=== PATIENT | male | born 1990 | race Caucasian/White ===

== ENCOUNTER 2018-12-22 01:15 | Emergency (ER) | payer SELFPAY ==
--- NOTE | 2018-12-22 01:18 | EDM.PDOC ---
ED HPI GENERAL MEDICAL PROBLEM - General Stated Complaint: RT ARM HURTS Time Seen by Provider: 12/22/18 01:18 Source of Information: Reports: Patient - History of Present Illness INITIAL COMMENTS - FREE TEXT/NARRATIVE: HISTORY AND PHYSICAL: History of present illness: [Patient presents with right hand pain, he states that he fell on outstretched hand, he has no wrist pain or forearm pain essentially no injury above the wrist , limits neurovascularly intact he is tender over metacarpals on the dorsum of the hand no open lesion No fever nausea vomiting chills sweats denies other injury Review of systems: As per history of present illness and below otherwise all systems reviewed and negative. Past medical history: As per history of present illness and as reviewed below otherwise noncontributory. Surgical history: As per history of present illness and as reviewed below otherwise noncontributory. Social history: No reported history of drug or alcohol abuse. Family history: As per history of present illness and as reviewed below otherwise noncontributory. Physical exam: HEENT: Atraumatic, normocephalic, pupils reactive, negative for conjunctival pallor or scleral icterus, mucous membranes moist, throat clear, neck supple, nontender, trachea midline. Lungs: Clear to auscultation, breath sounds equal bilaterally, chest nontender. Heart: S1S2, regular, negative for clicks, rubs, or JVD. Abdomen: Soft, nondistended, nontender. Negative for masses or hepatosplenomegaly. Negative for costovertebral tenderness. Pelvis: Stable nontender. Genitourinary: Deferred. Rectal: Deferred. Extremities: Atraumatic, negative for cords or calf pain. Neurovascular unremarkable. Neuro: Awake, alert, oriented. Cranial nerves II through XII unremarkable. Cerebellum unremarkable. Motor and sensory unremarkable throughout. Exam nonfocal. Diagnostics: [Right hand 3 views ] Therapeutics: [Splint Rest ice ibuprofen All up with hand on Monday, I did state to speak with hand Dr. Raymond in mind at [facility] specialist who states he can follow-up on Monday ] Impression: Nondisplaced fracture right second metacarpal Third metacarpal displaced fracture Definitive disposition and diagnosis as appropriate pending reevaluation and review of above. left hand Pain Score (Numeric/FACES): 10 - Related Data Allergies Allergy/AdvReac Type Severity Reaction Status Date / Time No Known Allergies Allergy Verified 12/22/18 01:27 Home Meds: Home Meds . [No Known Home Meds] 12/22/18 [History] ED ROS GENERAL - Review of Systems Review Of Systems: See Below ED EXAM, GENERAL - Physical Exam Exam: See Below Course - Vital Signs Last Recorded V/S: Last Vital Signs Temp 97.5 F 12/22/18 01:15 Pulse 81 12/22/18 01:15 Resp 18 12/22/18 01:15 BP 130/90 12/22/18 01:15 Pulse Ox 98 12/22/18 01:15 - Orders/Labs/Meds Orders: Active Orders 24 hr Category Date Time Status Hand Comp Min 3V Rt [CR] Stat Exams 12/22/18 01:17 Taken Departure - Departure Time of Disposition: 02:06 Disposition: Home, Self-Care 01 Condition: Good Clinical Impression: Fracture of metacarpal bone, Fracture of hand - Discharge Information Additional Instructions: Splint Rest Ice 20 minute intervals 3 times daily as needed Ibuprofen 4-800 mg 3 times daily 7-10 days Follow-up with Dr. Katz, hand specialist, call phone number below to schedule appropriate follow-up [facility] - Plastic Surgery [address], [address] [place] [address] The following information is given to patients seen in the emergency department who are being discharged to home. This information is to outline your options for follow-up care. We provide all patients seen in our emergency department with a follow-up referral. The need for follow-up, as well as the timing and circumstances, are variable depending upon the specifics of your emergency department visit. If you don't have a primary care physician on staff, we will provide you with a referral. We always advise you to contact your personal physician following an emergency department visit to inform them of the circumstance of the visit and for follow-up with them and/or the need for any referrals to a consulting specialist. The emergency department will also refer you to a specialist when appropriate. This referral assures that you have the opportunity for follow-up care with a specialist. All of these measure are taken in an effort to provide you with optimal care, which includes your follow-up. Under all circumstances we always encourage you to contact your private physician who remains a resource for coordinating your care. When calling for follow-up care, please make the office aware that this follow-up is from your recent emergency room visit. If for any reason you are refused follow-up, please contact the [facility] emergency department at and asked to speak to the emergency department charge nurse. - My Orders Last 24 Hours: My Active Orders 12/22/18 01:17 Hand Comp Min 3V Rt [CR] Stat - Assessment/Plan Last 24 Hours: My Active Orders 12/22/18 01:17 Hand Comp Min 3V Rt [CR] Stat
--- NOTE | 2018-12-24 11:42 | CR ---
EXAM DATE: 12/22/18 PATIENT'S AGE: 28 Patient: DANTE MCRAE Facility: [facility] Site . Site : 1990 Study: XRay-Extremity Right hand-12/22/2018 1:31:42 AM Ordering Physician: Kishor Greenfield Final Report: INDICATION: Hand pain following fall TECHNIQUE: Hand radiograph 3 views right COMPARISON: None FINDINGS: Bone: There is a displaced fracture in the 3rd metacarpal and a nondisplaced fracture at the base of the 2nd metacarpal. Joint: The carpal and metacarpal-phalangeal joints are unremarkable in appearance. The interphalangeal joints are normal in appearance. Soft tissue: Unremarkable. No radiopaque foreign bodies are seen. IMPRESSION: 1. There is a displaced fracture in the 3rd metacarpal and a nondisplaced fracture at the base of the 2nd metacarpal. Dictated by Blake Alejo MD @ 12/22/2018 1:33:22 AM Dictated by: Blake Alejo MD @ 12/22/2018 01:33:25 Signed by: Blake Alejo MD @12/22/2018 1:33:25 AM (Electronic Signature) Report Signed by Proxy. JOCELYN
== END 2018-12-22 02:26 | disposition home or self-care (01) ==
LOC: MW.ED 01:15
DX: S62.340A Nondisplaced fracture of base of second metacarpal bone, right hand, initial encounter for closed fracture (principal); S62.302A Unspecified fracture of third metacarpal bone, right hand, initial encounter for closed fracture; W19.XXXA Unspecified fall, initial encounter
CPT/HCPCS: 73130-26-RT; 73130-RT; 99282; 99283-25

== ENCOUNTER 2018-12-26 06:59 | Day surgery (SDC) | payer SELFPAY ==
[2018-12-26] MEDS ORDERED: Bupivacaine 0.25%/EPINEPHrine 1:200,000 10 ML SDV ONE (07:40)
--- NOTE | 2018-12-26 07:41 | PCM.PREANE ---
Preanesthetic Assessment - Anesthesia/Transfusion/Family Hx Anesthesia History: Prior Anesthesia Without Reaction Family History of Anesthesia Reaction: No Transfusion History: No Prior Transfusion(s) Intubation History: Unknown - Review of Systems General: No Symptoms Pulmonary: No Symptoms Cardiovascular: No Symptoms Gastrointestinal: No Symptoms Neurological: No Symptoms Other: Reports: None - Physical Assessment Height: 1.52 m Weight: 94.347 kg ASA Class: 2 Mental Status: Alert & Oriented x3 Airway Class: Mallampati = 2 Dentition: Reports: Normal Dentition Thyro-Mental Finger Breadths: 3 Mouth Opening Finger Breadths: 3 ROM/Head Extension: Full Lungs: Clear to Auscultation, Normal Respiratory Effort Cardiovascular: Regular Rate, Regular Rhythm - Allergies Allergies/Adverse Reactions: Allergies Allergy/AdvReac Type Severity Reaction Status Date / Time No Known Allergies Allergy Verified 12/25/18 09:49 - Blood Blood Available: No - Anesthesia Plan Pre-Op Medication Ordered: None - Acknowledgements Anesthesia Type Planned: General Anesthesia Pt an Appropriate Candidate for the Planned Anesthesia: Yes Alternatives and Risks of Anesthesia Discussed w Pt/Guardian: Yes Pt/Guardian Understands and Agrees with Anesthesia Plan: Yes PreAnesthesia Questionnaire HEENT History: Reports: Other (See Below) Other HEENT History: hx of fx jaw and nose Musculoskeletal History: Reports: Fracture Other Musculoskeletal History: hx of fx bilateral ankles and arm Neurological History: Reports: Head Trauma Endocrine/Metabolic History: Reports: Obesity/BMI 30+ (BMI 40.6) - Past Surgical History HEENT Surgical History: Reports: Oral Surgery, Other (See Below) Other HEENT Surgeries/Procedures: wisdom teeth removed, ?ear reconstruction (? stapendectomy) - left ear at age 4 - SUBSTANCE USE Smoking Status *Q: Current Every Day Smoker (quit last monday - used to smoke about 6-7 cigarettes per day) Tobacco Use Within Last Twelve Months: Cigarettes Days Per Week of Alcohol Use: 7 Number of Drinks Per Day: 2 Total Drinks Per Week: 14 Recreational Drug Use History: No - HOME MEDS Home Medications: Home Meds Hydrocodone/Acetaminophen [Hydrocodon-Acetaminophen 5-325] 1 tab PO Q4H PRN [History] - CURRENT (IN HOUSE) MEDS Current Meds: Current Medications Hydrocodone Bitart/Acetaminophen ([place] 325-5 Mg) 1 tab PO Q4H PRN PRN Reason: Pain Bupivacaine HCl/Epinephrine Bitart (Marcaine 0.25%/Epinephrine 1:200,000) 10 ml INJECT ONETIME ONE Stop: 12/26/18 08:01 Cefazolin Sodium/Dextrose 2 gm (/ Premix) 50 mls @ 100 mls/hr IV ONETIME ONE Stop: 12/26/18 08:29 Lactated Ringer's (Ringers, Lactated) 1,000 mls @ 125 mls/hr IV ASDIRECTED TODD
[2018-12-26] MEDS ORDERED: Bupivacaine 0.25%/EPINEPHrine 1:200,000 10 ML SDV INJECT ONE (08:00)
[2018-12-26] MEDS ORDERED: Lactated Ringers 1,000 ML IV SCH (08:00)
[2018-12-26] MEDS ORDERED: Acetaminophen/HYDROcodone 325-5 MG Tab PO PRN (08:00)
[2018-12-26] MEDS ORDERED: ceFAZolin 2 GM in Premix Bag 1 BAG IV ONE (08:00)
[2018-12-26] MEDS ORDERED: Midazolam 1 MG/ML 2 ML SDV ONE (08:43)
[2018-12-26] MEDS ORDERED: Lidocaine 2% 5 ML SDV ONE (08:44)
[2018-12-26] MEDS ORDERED: Propofol 200 MG/20 ML SDV ONE (08:44)
[2018-12-26] MEDS ORDERED: fentaNYL 100 MCG/2 ML SDV ONE ×2 (08:44→10:02)
[2018-12-26] MEDS ORDERED: Glycopyrrolate 0.2 MG/ML SDV ONE (09:13)
[2018-12-26] MEDS ORDERED: ceFAZolin/Dextrose,Iso-Osmotic 2 GM/50 ML Duplex Bag IV ONE (09:13)
[2018-12-26] MEDS ORDERED: Ondansetron 4 MG/2 ML SDV ONE (09:32)
[2018-12-26] MEDS: fentaNYL 100 MCG/2 ML SDV IVPUSH PRN ×4 (10:05→10:25)
[2018-12-26] MEDS ORDERED: Ketorolac 30 MG/ML SDV IVPUSH ONE (11:14)
[2018-12-26] MEDS ORDERED: Ketorolac 30 MG/ML SDV ONE (11:24)
--- NOTE | 2018-12-26 15:48 | PCM.OPNOTE ---
- General Post-Op/Procedure Note Date of Surgery/Procedure: 12/26/18 Operative Procedure(s): closed reduction pin fixation right middle finger metacarpal fracture Pre Op Diagnosis: right middle finger metacarpal fracture Post-Op Diagnosis: Same Anesthesia Technique: General LMA, Local Primary Surgeon: Destini Rogel Gluer Machine Operator: Nuria Zhang Complications: k wire broke off in bone. Left in situ and in ok position. Condition: Good Free Text/Narrative:: Intake & Output 12/25/18 12/26/18 12/26/18 23:59 07:59 15:59 Intake Total 1500 Balance 1500
--- NOTE | 2018-12-26 23:33 | OR ---
SURGEON: DESTINI ROGEL MD DATE OF PROCEDURE: 12/26/2018 PREOPERATIVE DIAGNOSES: Right middle finger metacarpal fracture with right index finger metacarpal base fracture, concomitant. POSTOPERATIVE DIAGNOSES: Right middle finger metacarpal fracture with right index finger metacarpal base fracture, concomitant. PROCEDURES PERFORMED: Closed reduction and pin fixation of right middle finger metacarpal fracture. PRIMARY SURGEON: Destini Rogel MD. FUMIGATOR AND STERILIZER: ALEENA Ely. REASON FOR AND ROLE OF FUMIGATOR AND STERILIZER: Retraction, prepping, draping, positioning and closure assistance. ANESTHESIA: General, LMA with local. INDICATIONS: Mr. Ruelas is a 28-year-old gentleman, seen today in evaluation for a right middle finger metacarpal fracture. Risks and benefits were discussed with him including, but not limited to, bleeding, infection, damage to underlying or overlying structures, possible need for future interventions, and possible scarring. PROCEDURE IN DETAIL: After informed consent was obtained and placed on the chart, the patient was brought to the operating theater and laid in the supine position. After adequate general anesthesia was obtained, the area was prepped and draped, and a time-out was completed to confirm side and site. Once confirmed, the fracture site was reduced under fluoroscopic examination, and then a 0.45 K-wire was used to pass through the bone itself. Fracture reduction was obtained with this, and a crossed second K-wire was placed. Unfortunately, the tip of the K-wire broke off in the distal aspect of the metacarpal head and was left in-situ. Then, a crossed K-wire was placed and stability was appreciated. Fluoroscopic examination demonstrates excellent reduction. Once adequately reduced, the two 0.45 K-wires were dressed with Jurgan balls and Xeroform as well as a short arm volar plaster splint. The patient tolerated this well, and all counts and needles were correct at the end of the case. FOLLOWUP INSTRUCTIONS: The patient will see us in 2 weeks for custom splinting and re-evaluation, or sooner if any problems or questions or concerns. All questions were answered today, and he does have a prescription for pain control. HEGGTHE / MODL /[id number]
--- NOTE | 2018-12-27 20:02 | PCM.HPR ---
H & P Addendum review - H & P Addendum Review Date of Original H & P: 12/24/18 Date Reviewed: 12/26/18 Time Reviewed: 08:00 Patient was Examined: No Changes
== END 2018-12-26 12:00 | disposition home or self-care (01) ==
LOC: MW.SDS 06:59
PROVIDERS: ATTEND Plastic Surgery
DX: S62.322A Displaced fracture of shaft of third metacarpal bone, right hand, initial encounter for closed fracture (principal); S62.350A Nondisplaced fracture of shaft of second metacarpal bone, right hand, initial encounter for closed fracture; E66.9 Obesity, unspecified; Z68.41 Body mass index [BMI] 40.0-44.9, adult; Z87.891 Personal history of nicotine dependence; X58.XXXA Exposure to other specified factors, initial encounter
CPT/HCPCS: 26608; A9270; J0690; J1885; J2001; J2250; J2405; J2704; J3010; J3490; J7120